=== PATIENT | female | born 1985 | race Caucasian/White ===

== ENCOUNTER 2018-12-08 08:27 | Day surgery (SDC) | payer OTHER ==
[2018-12-04 12:50] VITALS: BMI 29.7
[2018-12-08] MEDS ORDERED: BUPIVACAINE HCL/PF 2.5 MG/ML - 30 ML VIAL IJ ONE (08:46)
[2018-12-08] MEDS ORDERED: MIDAZOLAM HCL 2 MG/2 ML SINGLE DOSE VIAL ONE (09:16)
[2018-12-08] MEDS ORDERED: CLINDAMYCIN PHOSPHATE 600 MG/4 ML VIAL ONE (09:31)
[2018-12-08] MEDS ORDERED: KETOROLAC TROMETHAMINE 30 MG/1 ML VIAL ONE (09:37)
[2018-12-08] MEDS ORDERED: DESFLURANE GAS 240 ML BOTTLE IH ONE (10:07)
[2018-12-08] MEDS ORDERED: oxyCODONE HCL 5 MG TABLET PO PRN (10:29)
[2018-12-08] MEDS ORDERED: ACETAMINOPHEN 325 MG TABLET (FP) PO PRN (10:29)
[2018-12-08] MEDS ORDERED: ONDANSETRON 4 MG/2 ML VIAL IVPUSH PRN (10:29)
[2018-12-08] MEDS ORDERED: LACTATED RINGERS SOLUTION 1,000 ML IV SCH (10:30)
--- NOTE | 2018-12-08 10:51 | OP ---
DATE OF OPERATION: 12/08/2018 Done at [facility] SURGEON: John Arzate MD RAIL TRACK LAYER: BEVERLY Ballard PREOPERATIVE DIAGNOSES: 1. Left knee medial and lateral meniscal tear. 2. Left knee cartilage injury. 3. Left knee synovitis. POSTOPERATIVE DIAGNOSES: 1. Left knee medial and lateral meniscal tear. 2. Left knee cartilage injury. 3. Left knee synovitis. PROCEDURE: 1. Left knee arthroscopy with partial meniscectomy, medial and lateral meniscus, CPT code 37759. 2. Left knee arthroscopy with chondroplasty and abrasion-plasty, CPT code 47380. 3. Left knee arthroscopy with synovectomy, CPT code 15086. FINDINGS: 1. Medial meniscus anterior horn, central body, and posterior horn tear inner 1/3. 2. Lateral meniscus anterior 1/3 with torn inner metatarsal ligament. 3. Synovitis patellofemoral medial and lateral notch area. 4. Minimal cartilage change medial joint. 5. ACL and PCL intact. 6. Minor grade 1-2 cartilage injury, lateral femoral condyle and tibial plateau. 7. Lateral facet grade 2 changes patella with grade 1-2 changes patellofemoral trochlea. PROCEDURE: Informed consent was obtained. The patient came to the operating room, where the lower extremity was prepped and draped in a sterile fashion. A tourniquet was placed on the upper thigh, but not inflated. Using standard arthroscopic technique, a lateral incision and portal was made to allow for introduction of the camera into the suprapatellar bursa. This was then taken to the medial joint line, where under direct visualization, a medial incision and portal was made. Excessive synovium noted in the medial, lateral and patellofemoral and notch area was removed by an upbiter, shaver and Bovie cautery. This was found to bring in inflammatory tissue into the joint surface, a source of pain and dysfunction. Probing of the medial and lateral meniscus found tears, as described in the findings. These were removed with the upbiter and shaver and taken back to a stable rim. Grade 2 to 3 degenerative changes were treated with a chondroplasty, removing all flaking surfaces with low-setting Bovie along the periphery to prevent further flaking. Grade 4 changes, as noted, were treated with an abrasoplasty, creating a bleeding surface at the bone/cartilage interface. Aggressive debridement with shaver/mahad created bleeding surface. Micro fracture also done when indicated in findings. All areas of the knee were once again reexamined. The knee was then drained and a single suture was placed in all portals. A sterile dressing was placed and the patient was transferred to the recovery room without complication. The PA listed above was present and assisted at surgery. Their presence was absolutely medically necessary for the completion of the procedure. They helped hold the arthroscopy, pass instruments (and implants when indicated) and the procedure could not have been completed without their assistance. JOHN ARZATE M.D. [id number]
[2018-12-08] MEDS ORDERED: ONDANSETRON 4 MG/2 ML VIAL ONE (11:05)
[2018-12-08] MEDS ORDERED: PROMETHAZINE HCL 25 MG/1 ML VIAL IVPUSH ONE (11:37)
[2018-12-08 13:03] VITALS: BP 106/64; PULSE 77; TEMP 97.7
--- NOTE | 2018-12-14 09:15 | PATH ---
Surgical Pathology Report Patient Name: MARQUIS TATE [facility]. Rec. #: [id number] /Age/Gender: 1985 (Age: 33) / F Account: [id number] Location: [facility] Taken: 12/08/2018 Received: 12/08/2018 Reported: 12/14/2018 Physicians: John Read M.D. Specimen(s) Received ARTHROSCOPY SHAVINGS LEFT KNEE Clinical History tear meniscus left knee Final Diagnosis KNEE, LEFT, ARTHROSCOPIC SHAVINGS: FIBROCOLLAGENOUS TISSUE, FIBROSYNOVIAL TISSUE AND CARTILAGE. Electronically Signed Romana Loredo M.D. Gross Description Received in formalin, labeled "arthroscopy shavings, left knee," is a 3 x 3 x 1.8 cm. aggregate of carrillo-yellow soft tissue fragments. A customer counter representative portion is submitted in one cassette. MLSZ/12/11/2018 [place]/12/11/2018
== END 2018-12-08 12:50 | disposition home or self-care (01) ==
LOC: FASU 08:27
PROVIDERS: ATTEND Orthopaedic Surgery
PROC: 0SBD4ZZ Excision of Left Knee Joint, Percutaneous Endoscopic Approach (ICD-10-PCS; 2018-12-08)
PROC: 0SBD4ZZ Excision of Left Knee Joint, Percutaneous Endoscopic Approach (ICD-10-PCS; 2018-12-08)
PROC: 0SBD4ZZ Excision of Left Knee Joint, Percutaneous Endoscopic Approach (ICD-10-PCS; principal; 2018-12-08 09:46)
DX: S83.242A Other tear of medial meniscus, current injury, left knee, initial encounter (principal); S83.282A Other tear of lateral meniscus, current injury, left knee, initial encounter; S83.8X2A Sprain of other specified parts of left knee, initial encounter; M65.862 Other synovitis and tenosynovitis, left lower leg; X58.XXXA Exposure to other specified factors, initial encounter; Y93.9 Activity, unspecified; Y92.9 Unspecified place or not applicable
CPT/HCPCS: 84703; 88304-TC; 94760